=== PATIENT | male | born 1995 | race Caucasian/White ===

== ENCOUNTER 2016-11-18 17:02 | Emergency (ER) | payer OTHER ==
[2016-11-18 17:13] VITALS: BP 137/83; PULSE 118; RESP 16; TEMP 98.1; O2SAT 96
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
== END 2016-11-18 18:22 | disposition home or self-care (01) ==
LOC: CED 17:02
DX: S60.221A Contusion of right hand, initial encounter (principal); W22.8XXA Striking against or struck by other objects, initial encounter; F31.9 Bipolar disorder, unspecified
CPT/HCPCS: 73130-PO; 99214-PO; G0463-PO

== ENCOUNTER 2018-11-11 17:39 | Emergency (ER) | payer OTHER ==
[2018-11-11] MEDS ORDERED: fentaNYL 100 MCG/2 ML INJ NASAL ONE ×2 (18:04→19:02)
[2018-11-11] MEDS ORDERED: LORazepam 2 MG/ML INJ NASAL ONE (18:04)
--- NOTE | 2018-11-11 18:05 | EDPHY ---
H & P Time Seen by Provider: 11/11/18 18:05 HPI/ROS: HPI: This is a 22-year-old male who presents Chief Complaint: Left shoulder injury Location: Left shoulder Quality: Injury Duration: 1 hr prior to arrival Signs and Symptoms: No bleeding, no radiation, no numbness, no weakness, no tingling, no incontinence, + decreased range of motion, no swelling, + pain, no fever Timing: Acute Severity: 03/08 Context: Patient is right-hand dominant, presents with reaching up to do chest flys, when he felt pulling and popping sensation in his left shoulder. He reports that immediately he had decreased range of motion inability to raise his shoulder to heart level. He has a history of left shoulder dislocation 2 years ago that was reduced in the emergency room. Denies radiation, weakness, paresthesias.. Modifying Factors: None Comment: ROS: A comprehensive 10 system review of systems is otherwise negative aside from elements mentioned in the history of present illness. MEDICAL/SURGICAL/SOCIAL HISTORY: Medical history: anxiety Surgical history: Right collar bone surgery, oral surgery Social history: Employed at [employer]. CONSTITUTIONAL: Moderate distress, young adult white male, awake and alert HEENT: Atraumatic and normocephalic. NECK: supple, no midline tenderness Cardiovascular: Normal S1/S2, regular rate, regular rhythm, without murmur rub or gallop. PULMONARY/CHEST: Symmetrical and nontender. no crepitus. Clear to auscultation bilaterally. Good air movement. No accessory muscle usage. ABDOMEN: Soft, nondistended, nontender. EXTREMITIES: 2/2 pulses, strength 5/5, left arm held with 90 degree his elbow at flexion against the chest. Able to performed left shoulder shrug but with pain. Space noted at the SA joint with obvious deformity. Inability to touch his left arm to his contralateral shoulder. Able to wiggle all 5 fingers without any difficulty. Left ELBOW: Full extension to 180, flexion to 150, no tenderness over medial epicondyle, no tenderness over lateral epicondyle, no effusion. DIP/PIP/MCP flexion/extension intact with good light touch sensation. no clubbing, no cyanosis or edema. NEUROLOGICAL: no focal neuro deficits. GCS 15. Light touch sensation intact. SKIN: Warm and dry, no erythema. no rash. Good capillary refill. Source: Patient Exam Limitations: No limitations - Personal History Tetanus Vaccine Date: 2010 - Medical/Surgical History Hx Asthma: No Hx Chronic Respiratory Disease: No Hx Diabetes: No Hx Cardiac Disease: No Hx Renal Disease: No Hx Cirrhosis: No Hx Alcoholism: No Hx HIV/AIDS: No Hx Splenectomy or Spleen Trauma: No Other PMH: anxiety, right collarbone surgery, oral surgeries - Social History Smoking Status: Never smoked Constitutional: Initial Vital Signs Temperature (C) 36.8 C 11/11/18 18:04 Heart Rate 74 11/11/18 18:04 Respiratory Rate 16 11/11/18 18:04 Blood Pressure 157/111 H 11/11/18 18:04 O2 Sat (%) 95 11/11/18 18:04 O2 Delivery Mode Room Air O2 (L/minute) 2 Allergies/Adverse Reactions: No Known Allergies Allergy (Verified 11/11/18 18:30) Home Medications: Medication Instructions Recorded Lamictal 05/06/15 Seroquel 05/06/15 VYVANSE 02/06/16 Medical Decision Making - Diagnostics Imaging Results: Imaging Impressions Shoulder X-Ray 11/11/18 18:04 Impression: Anterior shoulder dislocation. Shoulder X-Ray 11/11/18 18:08 Impression: Interval reduction of left shoulder dislocation as described. Procedures: Procedure: Dislocation reduction. The dislocation of the left shoulder was reduced using Cherry technique without complications. Post reduction the patient's neurovascular exam is normal. Post reduction x-ray demonstrates reduction of the joint to the anatomic position. The procedure was performed by myself. Procedure: Splint placement. A left sling was applied. After application of the splint I returned and re- examined the patient. The splint was adequately immobilizing the joint and distal to the splint the patient's circulation and sensation was intact. ED Course/Re-evaluation: Vital signs reviewed and stable upon arrival. Left shoulder x-ray shows anterior close shoulder dislocation Given 200 mcg of nasal fentanyl and 2 mg of nasal Ativan without relief of pain IV access placed and given IV 100 mcg of fentanyl and IV 2 mg of Ativan with adequate pain relief Patient was adequately reduced using Cherry technique Repeat left shoulder x-ray shows normal anatomic alignment; no fracture Placed in left sling with orthopedic follow-up No signs of neurovascular compromise/tenting of skin/compartment syndrome/ extremities and joints examined above and below area of concern and are neurovascularly intact. This patient was seen under the supervision of my secondary supervising physician. I evaluated care for this patient with attending. Differential Diagnosis: Shoulder injury differential diagnosis includes but is not limited to clavicle fracture, contusion, AC joint separation, rotator cuff injury, labral tear, humeral head fracture, sprain, scapula fracture. - Data Points Medications Given: Discontinued Medications Fentanyl (Sublimaze) 100 mcg IVP EDNOW ONE Stop: 11/11/18 18:28 Last Admin: 11/11/18 18:35 Dose: 100 mcg Lorazepam (Ativan Injection) 2 mg IVP EDNOW ONE Stop: 11/11/18 18:28 Last Admin: 11/11/18 18:36 Dose: 2 mg Departure - Departure Disposition: Home, Routine, Self-Care Clinical Impression: Anterior dislocation of left shoulder Qualifiers: Encounter type: initial encounter Qualified Code(s): S43.015A - Anterior dislocation of left humerus, initial encounter Condition: Good Instructions: Shoulder Dislocation (ED), How to Use a Sling (ED) Additional Instructions: Wear the sling while out of bed until seen by Orthopedics. Please refrain from using left upper extremity until seen by Orthopedics. Take Tylenol 650 mg every 4 hours and/or Ibuprofen 600 mg every 8 hours with food as needed for pain. Apply ice for 30 minutes at a time; 2-3 times per day for the next 1-2 days. Follow up with Orthopedics in 5-7 days at which time they will evaluate and recommend with you if conservative management versus further imaging is indicated. Referrals: Chino Greenwood MD [Medical Doctor] - As per Instructions
[2018-11-11] MEDS ORDERED: fentaNYL 100 MCG/2 ML INJ ONE (18:19)
[2018-11-11] MEDS ORDERED: fentaNYL 100 MCG/2 ML INJ IVP ONE ×2 (18:25→18:27)
[2018-11-11] MEDS ORDERED: LORazepam 2 MG/ML INJ IVP ONE (18:27)
[2018-11-11] MEDS ORDERED: OXYCODONE/APAP 5/325MG PREPACK#4 BTL TAKEHOME ONE (19:18)
[2018-11-11 19:21] VITALS: BP 149/89
== END 2018-11-11 19:26 | disposition home or self-care (01) ==
PROC: 0RSKXZZ Reposition Left Shoulder Joint, External Approach (ICD-10-PCS; principal; 2018-11-11)
DX: S43.015A Anterior dislocation of left humerus, initial encounter (principal); X50.0XXA Overexertion from strenuous movement or load, initial encounter; Y93.B9 Activity, other involving muscle strengthening exercises
CPT/HCPCS: 96374; A4565; J2060; J3010